=== PATIENT | female | born 1950 ===

== ENCOUNTER 2016-07-22 09:23 | Emergency (ER) | payer OTHER ==
--- NOTE | 2016-07-22 09:53 | UC ---
UC General HPI - HPI Summary HPI Summary: - complaint of swollen lympoh nodes on bothe sides of her neck that started 3 daysa go came on suddenly-right side of neck are more swollen and painful that the left side pain on right side of neck radiates into her shoulder took some tylenol with minimal relief hx of lymphoma- last treatment in 2005- [facility] feels like she has a low grade fever and chills this morning denies sore throat , nasal congestion, cough , dental pain - History of Current Complaint Chief Complaint: UCGeneralIllness Stated Complaint: ENLARGED LYMPH NODES Time Seen by Provider: 07/22/16 09:47 Hx Obtained From: Patient - Allergy/Home Medications Allergies/Adverse Reactions: Allergies Allergy/AdvReac Type Severity Reaction Status Date / Time Erythromycin Allergy Severe Hives Verified 07/22/16 09:42 Home Medications: Home Medications Acetaminophen [Tylenol] 07/22/16 [History] PMH/Surg Hx/FS Hx/Imm Hx Previously Healthy: No - hx of lymphoma Endocrine History Of: Denies: Diabetes, Thyroid Disease Cardiovascular History Of: Denies: Cardiac Disorders, Hypertension Respiratory History Of: Denies: COPD, Asthma GI/ History Of: Denies: Ulcer - Surgical History Surgical History: Yes Surgery Procedure, Year, and Place: hysterectomy, breast [id number] - Family History Known Family History: Negative: Cardiac Disease, Hypertension, Diabetes - Social History Occupation: Employed Part-time Lives: With Family Alcohol Use: Daily Substance Use Type: None Smoking Status (MU): Never Smoked Tobacco Review of Systems Constitutional: Negative, Fever, Chills Skin: Negative Eyes: Negative ENT: Negative Respiratory: Negative Cardiovascular: Negative Gastrointestinal: Negative Genitourinary: Negative Motor: Negative Neurovascular: Negative Musculoskeletal: Negative Neurological: Negative Psychological: Negative All Other Systems Reviewed And Are Negative: Yes Physical Exam Triage Information Reviewed: Yes Appearance: No Pain Distress, Well-Nourished Vital Signs: Initial Vital Signs Temp 99.3 F 07/22/16 09:33 Pulse 73 07/22/16 09:33 Resp 16 07/22/16 09:33 BP 138/73 07/22/16 09:33 Pulse Ox 98 07/22/16 09:33 Vital Signs Reviewed: Yes Eyes: Positive: Conjunctiva Clear ENT: Positive: Pharyngeal erythema, TMs normal. Negative: Nasal congestion, Nasal drainage, Tonsillar swelling, Tonsillar exudate Dental: Positive: Cervical Lymphadenopathy - worse on right side than left Neck: Positive: Supple Respiratory: Positive: Lungs clear, Normal breath sounds, No respiratory distress, No accessory muscle use Cardiovascular: Positive: RRR, No Murmur, Pulses Normal, Brisk Capillary Refill Abdomen Description: Positive: Nontender, No Organomegaly, Soft Bowel Sounds: Positive: Present Musculoskeletal: Positive: No Edema Neurological: Positive: Alert Psychological Exam: Normal Skin Exam: Normal Course/Dx - Course Course Of Treatment: exam completed. d/t symptoms of current infection needs to be re-evaluated for lymphoma with oncologist at [facility] - Differential Dx - Multi-Symptom Provider Diagnoses: lymphadenopathy - Physician Notifications Discussed Patient Care With: Dr Owens Time Discussed With Above Provider: 10:08 Discharge - Discharge Plan Condition: Stable Disposition: HOME Patient Education Materials: Lymphadenopathy (ED) Referrals: No Primary Care Phys,NOPCP [Primary Care Provider] - [facility] – [place] [facility] [Outside] Additional Instructions: Please call your provider at [facility] for further evaluation of your swollen lymph nodes today. Increase fluids and rest Take acetaminophen or ibuprofen for fever or pain Please review your discharge instructions. If your symptoms do not improve please call your primary care provider or return to urgent care. Your blood pressure is elevated. Please contact your primary care provider within 1 day -4 weeks for further evaluation.
== END 2016-07-22 10:27 | disposition home or self-care (01) ==
LOC: UCEAST 09:23
DX: R59.1 Generalized enlarged lymph nodes (principal); Z88.3 Allergy status to other anti-infective agents
CPT/HCPCS: 87651; 99201; G0463